=== PATIENT | female | born 1945 | race Two or more races ===

== ENCOUNTER 2024-01-19 13:36 | Emergency (ER) | payer MEDICARE, MEDICAID ==
[~2024-01-19] VITALS: Ht 152.4 cm; Wt 68.0 kg
[2024-01-19 13:40] VITALS: O2SAT 99
[2024-01-19] MEDS ORDERED: TRAMADOL 50MG TABLET PO ONE (15:00)
[2024-01-19 15:47] LABS: CLARITY URINE CLEAR (CLEAR); COLOR URINE YELLOW (YELLOW); GLUCOSE URINE NEGATIVE (NEGATIVE); KETONES URINE TRACE (NEGATIVE); LEUKOCYTE ESTERASE URINE TRACE (NEGATIVE); NITRITE URINE NEGATIVE (NEGATIVE); OCCULT BLOOD URINE 1+ (NEGATIVE); PH URINE 5.5 (4.5-8.0); PROTEIN URINE TRACE (NEGATIVE); SPECIFIC GRAVITY URINE 1.029 (1.005-1.030)
[2024-01-19 15:51] LABS: POTASSIUM 4.2 mEq/L (3.5-5.1)
[2024-01-19 15:52] LABS: BASOPHILS % 0.8 % (0.0-2.0); CALCIUM 9.8 mg/dL (8.7-10.4); EOSINOPHILS % 2.9 % (0.0-5.0); HEMATOCRIT. 40.2 % (36.0-48.0); HEMOGLOBIN. 13.3 g/dL (12.0-16.0); LYMPHOCYTES % 37.1 % (20.0-50.0); MEAN CORPUSCULAR HEMOGLOBIN 28.6 pg (28.0-32.0); MEAN CORPUSCULAR HGB CONC 33.1 g/dL (31.0-37.0); MEAN CORPUSCULAR VOLUME 86.5 fL (81.0-99.0); MEAN PLATELET VOLUME 9.3 fl (7.4-10.4); MONOCYTES % 8.7 % (2.0-8.0); NEUTROPHILS % 50.5 % (40.0-76.0); PLATELET 272 x1000/uL (130-400); RED BLOOD CELL COUNT 4.64 mill/uL (4.2-5.4); WHITE BLOOD COUNT 5.7 x1000/uL (4.5-11.0)
[2024-01-19] MEDS: TRAMADOL 50MG TABLET PO NR (16:25)
[2024-01-19] MEDS ORDERED: NAPR-681 MT (16:31)
[2024-01-19] MEDS ORDERED: LEVO-65 MT (16:31)
[2024-01-19 16:43] LABS: BACTERIA URINE 1+; SQUAMOUS EPITHELIAL CELL URINE 1+ /lpf (RARE/1+)
[2024-01-19 16:44] LABS: WBC URINE 0-2 /hpf (0-2)
[2024-01-19 16:56] VITALS: BP 136/68; PULSE 80; RESP 16; TEMP 36.89184; O2SAT 99
== END 2024-01-19 16:55 | disposition home or self-care (01) ==
LOC: ER 13:36
DX: M54.50 Low back pain, unspecified (principal); R82.90 Unspecified abnormal findings in urine; Z90.710 Acquired absence of both cervix and uterus; Z88.6 Allergy status to analgesic agent
CPT/HCPCS: 36415; 80048; 81003; 85025; 99283

== ENCOUNTER 2024-09-15 20:24 | Emergency (ER) | payer MEDICARE, MEDICAID ==
[~2024-09-15] VITALS: Ht 152.4 cm; Wt 71.1 kg
[~2024-09-15 20:24] MED LIST: LEVO-65 MT; NAPR-681 MT
[2024-09-15 20:55] VITALS: O2SAT 99
[2024-09-15] MEDS: ACETAMINOPHEN 500MG TABLET PO ONE (22:03)
[2024-09-15] MEDS: LIDOCAINE 5% PATCH TOP SCH ×2 (22:04→22:39)
[2024-09-15] MEDS ORDERED: LIDO-53 TP (22:22)
[2024-09-15] MEDS ORDERED: ACET-2708 MT (22:22)
[2024-09-15] MEDS ORDERED: IBUP-2030 MT (22:26)
[2024-09-15 22:42] VITALS: BP 157/73; PULSE 62; RESP 18; TEMP 37; O2SAT 100
== END 2024-09-15 22:49 | disposition home or self-care (01) ==
LOC: ER 20:24
DX: M25.511 Pain in right shoulder (principal); M25.521 Pain in right elbow; I10 Essential (primary) hypertension; Z79.1 Long term (current) use of non-steroidal anti-inflammatories (NSAID); Z79.899 Other long term (current) drug therapy; Z88.6 Allergy status to analgesic agent
CPT/HCPCS: 73030; 73080; 99284; A4565